=== PATIENT | female | born 2000 | race Caucasian/White ===

== ENCOUNTER 2023-02-12 13:06 | Inpatient (IN) | payer MEDICAID ==
[2023-02-12] MEDS ORDERED: Penicillin G Potassium 5 MILLUNITS in Sodium Chloride 0.9% 100 ML IV ONE (14:01)
[2023-02-12] MEDS ORDERED: Lidocaine 1% 30 ML SDV INJECT PRN (14:27)
[2023-02-12] MEDS ORDERED: Methylergonovine 0.2 MG/1 ML Amp IM PRN (14:27)
[2023-02-12] MEDS ORDERED: Nalbuphine 20 MG/1 ML Amp IM PRN (14:27)
[2023-02-12] MEDS ORDERED: Acetaminophen 325 MG Tab PO PRN (14:27)
[2023-02-12] MEDS ORDERED: Tranexamic Acid 1,000 MG in Sodium Chloride 0.9% 100 ML IV PRN (14:27)
[2023-02-12] MEDS ORDERED: Carboprost Tromethamine 250 MCG/1 ML Amp IM PRN (14:27)
[2023-02-12] MEDS ORDERED: Ondansetron 4 MG/2 ML SDV IVPUSH PRN (14:27)
[2023-02-12] MEDS ORDERED: Sodium Chloride 0.9% 10 ML Syringe FLUSH PRN (14:27)
[2023-02-12] MEDS ORDERED: Misoprostol 400 MCG (4 X 100 MCG TAB) RECTAL PRN (14:27)
[2023-02-12] MEDS ORDERED: Lactated Ringers 1,000 ML IV ONE (14:27)
[2023-02-12] MEDS ORDERED: Oxytocin/Normal Saline 30 UNIT/500 ML BAG IV SCH ×2 (14:30)
[2023-02-12] MEDS ORDERED: Penicillin G Potassium 3 MILLUNITS in Sodium Chloride 0.9% 100 ML IV SCH (14:30)
[2023-02-12] MEDS ORDERED: Lactated Ringers 1,000 ML IV SCH (14:30)
[2023-02-12 14:51] LABS: HEMATOCRIT 37.3 % (37.0-47.0); HEMOGLOBIN 12.9 g/dL (12.0-16.0); MEAN CORPUSCULAR HEMOGLOBIN 31.1 pg (27.0-34.0); MEAN CORPUSCULAR HGB CONC 34.6 g/dL (33.0-35.0); MEAN CORPUSCULAR VOLUME 89.9 fL (80-100); RED BLOOD CELL COUNT 4.15 10^6/uL (4.2-5.4); WHITE BLOOD CELL COUNT,WBC 10.6 10^3/uL (5.0-10.0)
[2023-02-12] MEDS: Penicillin G Potassium 3 MILLUNITS in Sodium Chloride 0.9% 100 ML IV SCH ×2 (19:15→23:03)
[2023-02-12] MEDS ORDERED: fentaNYL 100 MCG/2 ML SDV IVPUSH PRN (21:20)
[2023-02-12] MEDS ORDERED: fentaNYL 100 MCG/2 ML SDV ONE ×2 (21:22→21:54)
[2023-02-12] MEDS ORDERED: Phenylephrine HCl In 0.9% NaCl 1 MG/10 ML Syringe ONE (21:54)
[2023-02-12] MEDS ORDERED: ePHEDrine 50 MG/ML SDV ONE (21:54)
[2023-02-12] MEDS ORDERED: Bupivacaine 0.25% 10 ML SDV ONE (21:54)
[2023-02-12] MEDS ORDERED: ePHEDrine 50 MG/ML SDV IVPUSH PRN (22:12)
[2023-02-12] MEDS ORDERED: Phenylephrine HCl In 0.9% NaCl 1 MG/10 ML Syringe IVPUSH PRN (22:12)
[2023-02-12] MEDS ORDERED: Ropivacaine 200 MG in Premix Bag 1 BAG EPIDUR SCH (22:15)
[2023-02-13] MEDS ORDERED: Oxytocin 10 Units/1 ML SDV IM PRN (00:31)
[2023-02-13] MEDS ORDERED: Docusate Sodium 100 MG Cap PO PRN (00:31)
[2023-02-13] MEDS ORDERED: Simethicone 80 MG Tab.Chew PO PRN (00:31)
[2023-02-13] MEDS ORDERED: Acetaminophen 325 MG Tab PO PRN (00:31)
[2023-02-13] MEDS ORDERED: Witch Hazel Medicated Pads 100/Jar TOP PRN (00:31)
[2023-02-13] MEDS ORDERED: Benzocaine/Menthol 20%-0.5% Spray 78 GM Cannister TOP PRN (00:31)
[2023-02-13] MEDS: Ibuprofen 800 MG Tab PO PRN ×2 (02:15→10:40)
[2023-02-13] MEDS: Prenatal Multivitamin with Calcium/Folic Acid/Iron Tab PO SCH (10:40)
[2023-02-14] MEDS: Ibuprofen 800 MG Tab PO PRN (09:13)
[2023-02-14] MEDS: Prenatal Multivitamin with Calcium/Folic Acid/Iron Tab PO SCH (09:52)
== END 2023-02-14 10:48 | disposition home or self-care (01) | DRG 807 ==
LOC: DL.OBCHECK 13:06 → DL.OB 14:28 → OBSVTOIN 23:57
PROVIDERS: ADMIT Family Medicine; ATTEND Family Medicine
PROC: 3E0R3BZ Introduction of Anesthetic Agent into Spinal Canal, Percutaneous Approach (ICD-10-PCS; principal; 2023-02-12)
PROC: 0KQM0ZZ Repair Perineum Muscle, Open Approach (ICD-10-PCS; principal; 2023-02-12)
PROC: 10E0XZZ Delivery of Products of Conception, External Approach (ICD-10-PCS; principal; 2023-02-12)
PROC: 00HU33Z Insertion of Infusion Device into Spinal Canal, Percutaneous Approach (ICD-10-PCS; principal; 2023-02-12)
DX: O42.02 Full-term premature rupture of membranes, onset of labor within 24 hours of rupture (principal); Z37.0 Single live birth; O99.824 Streptococcus B carrier state complicating childbirth; O99.02 Anemia complicating childbirth; O70.1 Second degree perineal laceration during delivery; O48.0 Post-term pregnancy; Z3A.40 40 weeks gestation of pregnancy
CPT/HCPCS: 01967; 36415; 59409; 84112; 85027; A9270-GY; J2540; J2590; J2795; J3010; J3490; J7120

== ENCOUNTER 2023-11-12 23:36 | Emergency (ER) | payer MEDICAID ==
[2023-11-13] MEDS: Ondansetron 4 MG/2 ML SDV IVPUSH ONE (00:01)
[2023-11-13] MEDS: Sodium Chloride 0.9% 10 ML Syringe FLUSH PRN (00:01)
[2023-11-13 00:03] LABS: BASOPHILS PERCENT AUTO 0.2 % (0.0-1.0); EOSINOPHILS PERCENT AUTO 1.2 % (1.0-3.0); HEMOGLOBIN 13.5 g/dL (12.0-16.0); LYMPHOCYTES PERCENT AUTO 27.4 % (20.5-50.1); MEAN CORPUSCULAR HEMOGLOBIN 29.4 pg (27.0-34.0); MEAN CORPUSCULAR HGB CONC 34.6 g/dL (33.0-35.0); NEUTROPHILS PERCENT AUTO 65.2 % (42.2-75.2); PLATELET COUNT,PLT 181 10^3/uL (150-450); RED BLOOD CELL COUNT 4.59 10^6/uL (4.2-5.4); WHITE BLOOD CELL COUNT,WBC 10.7 10^3/uL (5.0-10.0)
[2023-11-13] MEDS: Acetaminophen 325 MG Tab PO ONE (00:09)
[2023-11-13] MEDS: Acetaminophen 500 MG Tab PO ONE (00:14)
[2023-11-13 00:31] LABS: CORONAVIRUS COVID-19 NAA NEGATIVE (NEGATIVE); INFLUENZA A NAA NEGATIVE (NEGATIVE); INFLUENZA B NAA NEGATIVE (NEGATIVE)
[2023-11-13] MEDS: Sodium Chloride 0.9% 1,000 ML IV ONE (01:35)
[2023-11-13 02:48] LABS: APPEARANCE,URINE CLEAR (CLEAR); BILIRUBIN,URINE NEGATIVE (NEGATIVE); COLOR,URINE YELLOW (YELLOW); GLUCOSE,URINE NEGATIVE (NEGATIVE); KETONES,URINE NEGATIVE (NEGATIVE); LEUKOCYTE ESTERASE,URINE NEGATIVE (NEGATIVE); NITRITE,URINE NEGATIVE (NEGATIVE); OCCULT BLOOD,URINE TRACE-INTACT (NEGATIVE); PH,URINE 6.5 (5.0-9.0); PROTEIN,URINE NEGATIVE (NEGATIVE); UROBILINOGEN,URINE 0.2 mg/dL (0.2-1.0)
[2023-11-13 03:03] LABS: BACTERIA,URINE FEW /HPF (0-FEW/HPF); EPITHELIAL CELLS,URINE FEW /HPF (NOT SEEN); MUCUS,URINE OCCASIONAL /LPF (NOT SEEN); RBC,URINE 0-5 /HPF (0-5); WBC,URINE 0-5 /HPF (0-5/HPF)
== END 2023-11-13 03:33 | disposition home or self-care (01) ==
LOC: DL.ED 23:36
DX: G43.909 Migraine, unspecified, not intractable, without status migrainosus (principal); E83.42 Hypomagnesemia
CPT/HCPCS: 0240U; 36415; 81001; 83735; 85025; 96365; 96375; 99283; 99284; A9270; J2405; J3475; J7030; J3490

== ENCOUNTER 2024-05-14 12:48 | Observation (INO) | payer MEDICAID ==
[2024-05-14] MEDS: Lactated Ringers 1,000 ML IV SCH ×2 (16:01→18:02)
[2024-05-14 19:07] LABS: HEMATOCRIT 30.1 % (37.0-47.0); HEMOGLOBIN 10.1 g/dL (12.0-16.0); MEAN CORPUSCULAR HEMOGLOBIN 28.6 pg (27.0-34.0); MEAN CORPUSCULAR HGB CONC 33.6 g/dL (33.0-35.0); MEAN CORPUSCULAR VOLUME 85.3 fL (80-100); RED BLOOD CELL COUNT 3.53 10^6/uL (4.2-5.4); WHITE BLOOD CELL COUNT,WBC 8.8 10^3/uL (5.0-10.0)
[2024-05-14 19:33] LABS: ALANINE AMINOTRANSFERASE,ALT 19 U/L (14-59); ALBUMIN 2.3 g/dL (3.4-5.0); ALKALINE PHOSPHATASE 119 U/L (46-116); ANION GAP 12.7 mEq/L (7-13); ASPARTATE AMNIOTRANSFERASE,AST 17 U/L (15-37); BILIRUBIN TOTAL 0.3 mg/dL (0.2-1.0); BLOOD UREA NITROGEN,BUN 8 mg/dL (7-18); BUN/CREATININE RATIO 12.3 (No establ ref range); CARBON DIOXIDE,CO2 24 mmol/L (21-32); CHLORIDE,CL 103 mmol/L (98-107); CREATININE 0.65 mg/dL (0.55-1.02); GLUCOSE RANDOM 122 mg/dL (70-99); POTASSIUM,K 3.7 mmol/L (3.5-5.1); PROTEIN TOTAL,TP 5.5 g/dL (6.4-8.2); SODIUM,NA 136 mmol/L (136-145)
[2024-05-14 19:35] LABS: A/G RATIO 0.72; ESTIMATED GFR 128 mL/min (>=60)
[2024-05-15] MEDS ORDERED: Sodium Chloride 0.9% 10 ML Syringe FLUSH PRN (09:05)
[2024-05-15 09:12] LABS: APPEARANCE,URINE SLIGHTLY CLOUDY (CLEAR); BILIRUBIN,URINE NEGATIVE (NEGATIVE); COLOR,URINE YELLOW (YELLOW); GLUCOSE,URINE NEGATIVE (NEGATIVE); KETONES,URINE NEGATIVE (NEGATIVE); LEUKOCYTE ESTERASE,URINE MODERATE (NEGATIVE); NITRITE,URINE NEGATIVE (NEGATIVE); OCCULT BLOOD,URINE TRACE-INTACT (NEGATIVE); PROTEIN,URINE NEGATIVE (NEGATIVE); UROBILINOGEN,URINE 0.2 mg/dL (0.2-1.0)
[2024-05-15 09:22] LABS: AMORPHOUS SEDIMENT,URINE FEW /HPF (NOT SEEN); BACTERIA,URINE MODERATE /HPF (0-FEW/HPF); EPITHELIAL CELLS,URINE MODERATE /HPF (NOT SEEN); MUCUS,URINE FEW /LPF (NOT SEEN); RBC,URINE 0-5 /HPF (0-5)
== END 2024-05-15 13:40 | disposition home or self-care (01) ==
LOC: DL.US 12:48 → DL.MS 15:00 → UNDOADMOB 15:00 → DL.MS 15:48
PROVIDERS: ADMIT Family Medicine; ATTEND Family Medicine
DX: O26.813 Pregnancy related exhaustion and fatigue, third trimester (principal); R42 Dizziness and giddiness; O99.280 Endocrine, nutritional and metabolic diseases complicating pregnancy, unspecified trimester; E86.0 Dehydration; O99.013 Anemia complicating pregnancy, third trimester; Z34.93 Encounter for supervision of normal pregnancy, unspecified, third trimester; Z79.899 Other long term (current) drug therapy; Z3A.36 36 weeks gestation of pregnancy
CPT/HCPCS: 36415; 59025; 76815; 80053; 81001; 85027; 87086; 93005; 93306; J7120

== ENCOUNTER 2024-05-20 14:21 | Inpatient (IN) | payer MEDICAID ==
[2024-05-20 16:35] LABS: HEMOGLOBIN 10.5 g/dL (12.0-16.0); MEAN CORPUSCULAR HGB CONC 32.8 g/dL (33.0-35.0); MEAN CORPUSCULAR VOLUME 85.3 fL (80-100); PLATELET COUNT,PLT 130 10^3/uL (150-450); RED BLOOD CELL COUNT 3.75 10^6/uL (4.2-5.4); WHITE BLOOD CELL COUNT,WBC 9.1 10^3/uL (5.0-10.0)
[2024-05-20] MEDS ORDERED: Sodium Chloride 0.9% 10 ML Syringe FLUSH PRN (16:37)
[2024-05-20] MEDS ORDERED: Methylergonovine 0.2 MG/1 ML Amp IM PRN (16:37)
[2024-05-20] MEDS ORDERED: Ondansetron 4 MG/2 ML SDV IVPUSH PRN (16:37)
[2024-05-20] MEDS ORDERED: Misoprostol 400 MCG (4 X 100 MCG TAB) RECTAL PRN (16:37)
[2024-05-20] MEDS ORDERED: Carboprost Tromethamine 250 MCG/1 ML Amp IM PRN (16:37)
[2024-05-20] MEDS ORDERED: Tranexamic Acid 1,000 MG in Sodium Chloride 0.9% 100 ML IV PRN (16:37)
[2024-05-20] MEDS ORDERED: fentaNYL 100 MCG/2 ML SDV IVPUSH PRN (16:37)
[2024-05-20] MEDS ORDERED: Acetaminophen 325 MG Tab PO PRN (16:37)
[2024-05-20 16:38] LABS: BASOPHILS PERCENT AUTO 0.1 % (0.0-1.0); LYMPHOCYTES PERCENT AUTO 11.1 % (20.5-50.1); MONOCYTES PERCENT AUTO 6.4 % (2-8); NEUTROPHILS PERCENT AUTO 81.4 % (42.2-75.2)
[2024-05-20 16:46] LABS: ALANINE AMINOTRANSFERASE,ALT 19 U/L (14-59); ALBUMIN 2.6 g/dL (3.4-5.0); ALKALINE PHOSPHATASE 147 U/L (46-116); ANION GAP 14.9 mEq/L (7-13); ASPARTATE AMNIOTRANSFERASE,AST 22 U/L (15-37); BILIRUBIN TOTAL 0.6 mg/dL (0.2-1.0); BLOOD UREA NITROGEN,BUN 5 mg/dL (7-18); BUN/CREATININE RATIO 9.4 (No establ ref range); CALCIUM 8.8 mg/dL (8.5-10.1); CARBON DIOXIDE,CO2 22 mmol/L (21-32); CHLORIDE,CL 103 mmol/L (98-107); CREATININE 0.53 mg/dL (0.55-1.02); GLUCOSE RANDOM 85 mg/dL (70-99); POTASSIUM,K 3.9 mmol/L (3.5-5.1); SODIUM,NA 136 mmol/L (136-145)
[2024-05-20] MEDS: Penicillin G Potassium 5 MILLUNITS in Sodium Chloride 0.9% 100 ML IV ONE (16:59)
[2024-05-20 17:00] LABS: A/G RATIO 0.76; ESTIMATED GFR 135 mL/min (>=60)
[2024-05-20] MEDS: Lactated Ringers 1,000 ML IV SCH (17:00)
[2024-05-20 17:14] LABS: BAND PERCENT MAN 1 %; LYMPHOCYTES PERCENT MAN 14 % (20-50); MONOCYTES PERCENT MAN 2 % (2-8); SEG NEUTROPHILS PERCENT MAN 83 % (42-75)
[2024-05-20] MEDS: Oxytocin/Normal Saline 30 UNIT/500 ML BAG IV SCH (19:08)
[2024-05-20] MEDS: Penicillin G Potassium 3 MILLUNITS in Sodium Chloride 0.9% 100 ML IV SCH (21:03)
[2024-05-21] MEDS ORDERED: Bupivacaine 0.25% 10 ML SDV ONE (00:35)
[2024-05-21] MEDS ORDERED: fentaNYL 100 MCG/2 ML SDV ONE (00:35)
[2024-05-21] MEDS ORDERED: Phenylephrine HCl In 0.9% NaCl 1 MG/10 ML Syringe IVPUSH PRN (00:41)
[2024-05-21] MEDS ORDERED: ePHEDrine 50 MG/ML SDV IVPUSH PRN (00:41)
[2024-05-21] MEDS ORDERED: Ropivacaine 200 MG in Premix Bag 1 BAG EPIDUR SCH (00:45)
[2024-05-21] MEDS ORDERED: Oxytocin 10 Units/1 ML SDV IM PRN (01:05)
[2024-05-21] MEDS ORDERED: Simethicone 80 MG Tab.Chew PO PRN (01:05)
[2024-05-21] MEDS ORDERED: Benzocaine/Menthol 20%-0.5% Spray 78 GM Cannister TOP PRN (01:05)
[2024-05-21] MEDS ORDERED: Acetaminophen 325 MG Tab PO PRN (01:05)
[2024-05-21] MEDS: Witch Hazel Medicated Pads 100/Jar TOP PRN (05:15)
[2024-05-21] MEDS: Lidocaine 1% 30 ML SDV INJECT ONE (06:39)
[2024-05-21] MEDS: Lactated Ringers 1,000 ML IV ONE (06:39)
[2024-05-21] MEDS: Ibuprofen 800 MG Tab PO SCH (06:40)
[2024-05-21] MEDS: Prenatal Multivitamin with Calcium/Folic Acid/Iron Tab PO SCH (09:50)
[2024-05-22] MEDS: Docusate Sodium 100 MG Cap PO PRN (09:36)
[2024-05-23] MEDS ORDERED: Ropivacaine 100 ML EPIDUR ONE (10:03)
[2024-05-23] MEDS ORDERED: Bupivacaine 0.25% 10 ML SDV NERVRT ONE (10:03)
[2024-05-23] MEDS ORDERED: fentaNYL 100 MCG/2 ML SDV EPIDUR ONE (10:03)
[2024-05-23] MEDS ORDERED: Ketorolac 30 MG/ML SDV IVPUSH ONE (10:03)
[2024-05-23] MEDS ORDERED: Ondansetron 4 MG/2 ML SDV IV ONE (10:03)
== END 2024-05-23 10:04 | disposition home or self-care (01) | DRG 807 ==
LOC: DL.OBCHECK 14:21 → DL.OB 16:37 → OBSVTOIN 05-21 00:43
PROVIDERS: ADMIT Family Medicine; ATTEND Family Medicine
PROC: 10E0XZZ Delivery of Products of Conception, External Approach (ICD-10-PCS; principal; 2024-05-21)
PROC: 10907ZC Drainage of Amniotic Fluid, Therapeutic from Products of Conception, Via Natural or Artificial Opening (ICD-10-PCS; 2024-05-21)
PROC: 3E0R3BZ Introduction of Anesthetic Agent into Spinal Canal, Percutaneous Approach (ICD-10-PCS; 2024-05-21)
PROC: 00HU33Z Insertion of Infusion Device into Spinal Canal, Percutaneous Approach (ICD-10-PCS; 2024-05-21)
DX: O36.8130 Decreased fetal movements, third trimester, not applicable or unspecified (principal); Z37.0 Single live birth; O99.824 Streptococcus B carrier state complicating childbirth; Z3A.37 37 weeks gestation of pregnancy
CPT/HCPCS: 36415; 59409; 80053; 84112; 85025; 86850; 86900; 86901; A9270-GY; J0665; J1885; J2405; J2540; J2590; J2795; J3010; J3490; J7120

== ENCOUNTER 2024-09-28 23:27 | Emergency (ER) | payer MEDICAID ==
[2024-09-29] MEDS: Ondansetron 4 MG/2 ML SDV IVPUSH ONE (00:13)
[2024-09-29 00:14] LABS: BASOPHILS PERCENT AUTO 0.2 % (0.0-1.0); EOSINOPHILS PERCENT AUTO 4.3 % (1.0-3.0); HEMATOCRIT 39.4 % (37.0-47.0); HEMOGLOBIN 13.3 g/dL (12.0-16.0); MEAN CORPUSCULAR HEMOGLOBIN 27.7 pg (27.0-34.0); MEAN CORPUSCULAR HGB CONC 33.8 g/dL (33.0-35.0); MEAN CORPUSCULAR VOLUME 81.9 fL (80-100); MONOCYTES PERCENT AUTO 7.1 % (2-8); NEUTROPHILS PERCENT AUTO 50.4 % (42.2-75.2); PLATELET COUNT,PLT 242 10^3/uL (150-450); RED BLOOD CELL COUNT 4.81 10^6/uL (4.2-5.4); WHITE BLOOD CELL COUNT,WBC 8.7 10^3/uL (5.0-10.0)
[2024-09-29 00:33] LABS: APPEARANCE,URINE CLEAR (CLEAR); BILIRUBIN,URINE NEGATIVE (NEGATIVE); COLOR,URINE YELLOW (YELLOW); GLUCOSE,URINE NEGATIVE (NEGATIVE); KETONES,URINE NEGATIVE (NEGATIVE); LEUKOCYTE ESTERASE,URINE NEGATIVE (NEGATIVE); NITRITE,URINE NEGATIVE (NEGATIVE); OCCULT BLOOD,URINE NEGATIVE (NEGATIVE); PROTEIN,URINE NEGATIVE (NEGATIVE); UROBILINOGEN,URINE 0.2 mg/dL (0.2-1.0)
[2024-09-29 00:36] LABS: A/G RATIO 0.9; ALANINE AMINOTRANSFERASE,ALT 21 U/L (14-59); ALBUMIN 3.6 g/dL (3.4-5.0); ALKALINE PHOSPHATASE 100 U/L (46-116); ANION GAP 14.2 mEq/L (7-13); ASPARTATE AMNIOTRANSFERASE,AST 14 U/L (15-37); BILIRUBIN TOTAL 0.2 mg/dL (0.2-1.0); BLOOD UREA NITROGEN,BUN 10 mg/dL (7-18); BUN/CREATININE RATIO 12.7 (No establ ref range); CALCIUM 9.3 mg/dL (8.5-10.1); CARBON DIOXIDE,CO2 28 mmol/L (21-32); CHLORIDE,CL 105 mmol/L (98-107); CREATININE 0.79 mg/dL (0.55-1.02); EST CRCL DRUG DOSING (CG) 116.73 mL/min; ESTIMATED GFR 108 mL/min (>=60); GLUCOSE RANDOM 98 mg/dL (70-99); LIPASE 61 U/L (16-77); MAGNESIUM 1.8 mg/dL (1.8-2.4); POTASSIUM,K 4.2 mmol/L (3.5-5.1); PROTEIN TOTAL,TP 7.4 g/dL (6.4-8.2); SODIUM,NA 143 mmol/L (136-145)
[2024-09-29] MEDS: Iopamidol 612 MG/ML 100 ML Bottle IVPUSH ONE (00:40)
[2024-09-29] MEDS: Morphine 2 MG/ML SYRINGE IVPUSH ONE (02:54)
== END 2024-09-29 08:47 | disposition home or self-care (01) ==
LOC: DL.ED 23:27
DX: R10.11 Right upper quadrant pain (principal); R10.13 Epigastric pain; Z79.899 Other long term (current) drug therapy
CPT/HCPCS: 74177; 76705; 80053; 81003; 81025; 83690; 83735; 84484; 85025; 87428; 93005; 96374; 96375; 99284; J2405; Q9967